=== PATIENT | female | born 1980 | race Two or more races ===

== ENCOUNTER 2019-05-09 00:43 | Emergency (ER) | payer SELFPAY ==
[~2019-05-09] VITALS: Ht 170.2 cm; Wt 73.5 kg
[2019-05-09 00:50] VITALS: BP 111/68
--- NOTE | 2019-05-09 01:05 | NUR ---
ED Nurse Note: Walk-in patient is here for bleeding during for three days, claims that she is two months. PT. AO4. NAD. VSS. SPOUSE AT BEDSIDE
--- NOTE | 2019-05-09 01:16 | NUR ---
ED Nurse Note: ERMD AT BEDSIDE FOR US
--- NOTE | 2019-05-09 01:20 | NUR ---
ED Nurse Note: IV ACCESS ESTABLISHED. BLOOD AND URINE COLLECTED; SENT DOWN TO LAB.
[2019-05-09 01:35] LABS: BILIRUBIN, URINE NEGATIVE (NEGATIVE); COLOR,URINE PALE YELLOW; GLUCOSE, URINE (UA) NEGATIVE (NEGATIVE); KETONES,URINE NEGATIVE (NEGATIVE); LEUKOCYTE ESTERASE ,URINE 3+ (NEGATIVE); NITRITE,URINE NEGATIVE (NEGATIVE); PH,URINE 7 (4.5-8.0); PROTEIN,URINE 1+ (NEGATIVE); UROBILINOGEN,URINE NORMAL MG/DL (0.0-1.0)
[2019-05-09 01:41] LABS: EOSINOPHILS % (AUTO) 8.4 % (0.0-3.0); HEMATOCRIT 33.9 % (37.0-47.0); HEMOGLOBIN 11.2 G/DL (12.0-16.0); LYMPHOCYTES % (AUTO) 25.9 % (20.0-45.0); MEAN CORPUSCULAR VOLUME 76 FL (80-99); MONOCYTES % (AUTO) 6.9 % (1.0-10.0); NEUTROPHILS % (AUTO) 57.9 % (45.0-75.0); PLATELET COUNT 190 K/UL (150-450); RED BLOOD COUNT 4.43 M/UL (4.20-5.40); RED CELL DISTRIBUTION WIDTH 12.1 % (11.6-14.8); WHITE BLOOD COUNT 6.4 K/UL (4.8-10.8)
--- NOTE | 2019-05-09 01:43 | Emergency Room Report ---
History of Present Illness General Chief Complaint: Complications Source: Patient Present Illness HPI This is a 39-year-old female who is 4, para 3, approximately 8 weeks . She presents with chief complaint of pelvic pain and vaginal bleeding. She had spotting for the last couple days but more reddish color now. Denies any fever chills but denies any nausea vomiting. Nothing made it better. Nothing made it worse. Pain is 5 out of 10. Allergies: Coded Allergies: No Known Allergies (Unverified , 05/09/19) Patient History Past Medical History: see triage record, old chart reviewed Past Surgical History: other Pertinent Family History: none Social History: Denies: smoking Now: Yes Immunizations: other Reviewed Nursing Documentation: PMH: Agreed; PSxH: Agreed Nursing Documentation-PMH Past Medical History: No Stated History Review of Systems Eye: Denies: eye pain, blurred vision ENT: Denies: ear pain, nose congestion, throat swelling Respiratory: Denies: cough, shortness of breath Cardiovascular: Denies: chest pain, palpitations Gastrointestinal: Denies: abdominal pain, diarrhea, nausea, vomiting Genitourinary: Reports: vag bleed/dc Musculoskeletal: Denies: back pain, joint pain Skin: Denies: rash Neurological: Denies: headache, numbness Endocrine: Denies: increased thirst, increased urine Hematologic/Lymphatic: Denies: easy bruising All Other Systems: negative except mentioned in HPI Physical Exam Vital Signs Date Time Temp Pulse Resp B/P (MAP) Pulse Ox O2 Delivery O2 Flow Rate FiO2 05/09/19 00:50 98.1 85 16 111/68 (82) 100 Room Air Vitals normal Sp02 EP Interpretation: reviewed, normal General Appearance: well appearing, no apparent distress, alert Head: normocephalic, atraumatic Eyes: bilateral eye PERRL, bilateral eye EOMI ENT: hearing grossly normal, normal pharynx Neck: full range of motion, supple, no meningismus Respiratory: chest non-tender, lungs clear, normal breath sounds Cardiovascular #1: regular rate, rhythm, no murmur Gastrointestinal: normal bowel sounds, non tender, no mass, no organomegaly, no bruit, non-distended Musculoskeletal: back normal, gait/station normal, normal range of motion Psychiatric: mood/affect normal Skin: warm/dry Medical Decision Making Diagnostic Impression: Primary Impression: Threatened Additional Impression: UTI (urinary tract infection) Qualified Codes: N30.00 - Acute cystitis without hematuria ER Course Patient presents with vaginal bleeding in early . I did a bedside ultrasound and the only thing I saw was is gestational sac. I wanted to get a pelvic ultrasound. I ordered an official ultrasound but patient refused to do transvaginal ultrasound. Per fiber optic splicer, she also saw same thing I did on my bedside ultrasound. Measurement is about 4 weeks. Able to see any heart tone. Patient has no pain now. Will discharge home. Will need follow- up ultrasound. CT/MRI/US Diagnostic Results CT/MRI/US Diagnostic Results : Imaging Test Ordered: Limited OB ultrasound Impression Read by fiber optic splicer. Gestational sac without heartbeat. Last Vital Signs Date Time Temp Pulse Resp B/P (MAP) Pulse Ox O2 Delivery O2 Flow Rate FiO2 05/09/19 00:50 98.1 85 16 111/68 (82) 100 Room Air Status: improved Disposition: HOME, SELF-CARE Condition: Stable Scripts Nitrofurantoin Monohyd/M-Cryst (Nitrofurantoin Mckenzie-Mcr 100 mg) 100 Mg Capsule 100 MG ORAL Q12H, #14 CAP Prov: Dane Stafford MD 05/09/19 Additional Instructions: Follow-up with your ELECTRICAL INSTRUMENT MAKER in a week for repeat ultrasound. You refused a pelvic ultrasound. Because of this, unable to document heartbeat. Return if symptoms worsen. Dane Stafford MD May 09, 2019 01:43
[2019-05-09 01:46] LABS: ANION GAP 14 mmol/L (5-15); APPEARANCE,URINE SLIGHTLY CLOUDY; BLOOD UREA NITROGEN 12 mg/dL (7-18); CALCIUM 9.5 MG/DL (8.5-10.1); CARBON DIOXIDE 25 MMOL/L (21-32); CHLORIDE 104 MMOL/L (98-107); CREATININE 0.7 MG/DL (0.55-1.30); POTASSIUM 3.2 MMOL/L (3.5-5.1); SODIUM 143 MMOL/L (136-145)
[2019-05-09] MEDS ORDERED: cefTRIAXone 1 GM in NS 55 ML IVPB ONE (02:00)
--- NOTE | 2019-05-09 02:00 | NUR ---
ED Nurse Note: Pt to US
--- NOTE | 2019-05-09 02:35 | NUR ---
ED Nurse Note: Pt back from US, Rocephin infusing
[2019-05-09] MEDS ORDERED: MACROBID100 MG ORAL (02:46)
--- NOTE | 2019-05-09 03:00 | NUR ---
ED Nurse Note: [employer] phone utilized #[phone] Hebrew, pt's questions answered and discharge instructions given, verbalized understanding
--- NOTE | 2019-05-09 03:18 | NUR ---
ER DISCHARGE NOTE: Patient is cleared to be discharged per ERMD, pt is aox4, on room air, with stable vital signs. pt was given dc and prescription instructions, pt was able to verbalize understanding, pt id band and iv site removed without complications. pt is able to ambulate with steady gait. pt took all belongings. Given OB resource number and encouraged to return if symptoms worsened.
--- NOTE | 2019-05-09 12:05 | Diagnostic Imaging Report ---
Indication: Vaginal bleeding and abdominal pain Technique: Grayscale and duplex Doppler imaging of the pelvis performed utilizing a transabdominal scan. Comparison: None Findings: There is evidence of an intrauterine . There is no pole but a yolk sac is identified. The patient refused endovaginal scanning. Based on the measurements of the gestational sac is estimated at about 4 weeks. Suggest follow-up and correlation with quantitative beta-hCG. In the right adnexa there is a cystic structure measuring 2.6 cm. This could be ovarian. The uterus measures 7 x 4.6 x 6.5 cm. Ovaries are not seen. IMPRESSION: Evidence of an intrauterine about 4 weeks gestational age. Viability unknown. Considerations include normal early IUP versus missed or partial spontaneous . Suggest follow-up ultrasound and correlation with serial quantitative beta-hCG. Suggestion of a right adnexal 2.6 cm cyst. Ovarian versus paraovarian. Suboptimal evaluation due to endovaginal exam refusal.
== END 2019-05-09 03:18 | disposition home or self-care (01) ==
LOC: EMR 02:02
DX: O20.0 Threatened abortion (principal); Z3A.01 Less than 8 weeks gestation of pregnancy; O23.11 Infections of bladder in pregnancy, first trimester; N30.00 Acute cystitis without hematuria
CPT/HCPCS: 36415; 76815; 80048; 81001; 84702; 85025; 87086; 96365; 99284; J0696